=== PATIENT | male | born 2000 | race Caucasian/White ===

== ENCOUNTER 2019-01-29 22:04 | Emergency (ER) | payer SELFPAY ==
--- NOTE | 2019-01-29 22:07 | ED.ADGEN ---
Past History Past Medical History: Constipation, GERD, Other Past Surgical History: Tonsillectomy Smoking: Non-smoker Alcohol Use: None Drug Use: None Adult General Chief Complaint Chief Complaint ".. I had some nausea and vomiting and abdomen pain earlier... and was seen at [facility].. they said I was constipated.. I went home and drank some of that Mag . Citrate.. and got diarrhea.... but things got better and I went back to work.. but .. now I am having abdomen pain again..." HPI HPI Patient is a 18 year old male who presents with above hx and complaints generalized abdomen pain. Patient denies any intake of bad food. No recent travel or specific and no contacts. No history of trauma. Currently patient has no diarrhea but has persistent nausea and vomiting and now dry heaves. Patient has some rebound to right upper quadrant . No psoas sign. No history of exposures to ill animals. Mother is at bedside and she has consumed the same food that her son has eaten no ill effects. Patient normally follows with Dr. Medina. Patient states he has had previous problems with constipation. No family history of colitis or early onset gallbladder disease. Patient did have a onset of high fat meal prior the onset of current symptoms. Review of Systems Review of Systems Constitutional: Denies fever or chills [] Eyes: Denies change in visual acuity, redness, or eye pain [] HENT: Denies nasal congestion or sore throat [] Respiratory: Denies cough or shortness of breath [] Cardiovascular: No additional information not addressed in HPI [] GI: Complaints of generalized abdominal pain, nausea, vomiting,. Denies bloody stools or diarrhea [] : Denies dysuria or hematuria [] Musculoskeletal: Denies back pain or joint pain [] Integument: Denies rash or skin lesions [] Neurologic: Denies headache, focal weakness or sensory changes [] Endocrine: Denies polyuria or polydipsia [] All other systems were reviewed and found to be within normal limits, except as documented in this note. Family History Family History Noncontributory Current Medications Current Medications Current Medications Medications (Trade) Dose Ordered Sig/Pranav Start Time Stop Time Status Last Admin Dose Admin Ceftriaxone Sodium 1 gm/ Sodium Chloride 50 ml @ 100 mls/hr 1X ONCE 01/30/19 00:30 01/30/19 00:59 DC 01/30/19 00:08 100 MLS/HR Ceftriaxone Sodium (Rocephin) 1 gm STK-MED ONCE 01/29/19 23:59 01/29/19 23:59 DC Info (Do NOT chart on this entry -- for MONITORING) 1 each PRN DAILY PRN 01/30/19 00:15 01/30/19 02:42 DC Iohexol (Omnipaque 240 Mg/ml) 30 ml 1X ONCE 01/30/19 00:30 01/30/19 00:31 DC 01/30/19 01:28 30 ML Iohexol (Omnipaque 300 Mg/ml) 75 ml 1X ONCE 01/30/19 00:30 01/30/19 00:31 DC 01/30/19 01:29 75 ML Magnesium Hydroxide (Milk Of Magnesia) 2,400 mg 1X ONCE 01/30/19 00:30 01/30/19 00:31 DC 01/30/19 00:08 2,400 MG Metronidazole 100 ml @ 100 mls/hr 1X ONCE 01/30/19 00:30 01/30/19 01:29 DC 01/30/19 00:09 100 MLS/HR Ondansetron HCl (Zofran) 8 mg 1X ONCE 01/30/19 00:30 01/30/19 00:31 DC 01/30/19 00:29 8 MG Prochlorperazine Edisylate (Compazine) 10 mg STK-MED ONCE 01/30/19 01:05 01/30/19 01:06 DC Sodium Chloride 50 ml @ As Directed STK-MED ONCE 01/29/19 23:59 01/29/19 23:59 DC Allergies Allergies Allergies Coded Allergies Type Severity Reaction Last Updated Verified No Known Drug Allergies 09/25/13 No Physical Exam Physical Exam Constitutional: in acute distress, non-toxic appearance. [] HENT: Normocephalic, atraumatic, bilateral external ears normal, oropharynx dry, no oral exudates, nose normal. [] Eyes: PERRLA, EOMI, conjunctiva normal, no discharge. [] Neck: Normal range of motion, no tenderness, supple, no stridor. [] Cardiovascular:Heart rate regular rhythm, no murmur [] Lungs & Thorax: Bilateral breath sounds clear to auscultation [] Abdomen: Bowel sounds hyperactive,, soft, generalized tenderness, no masses, no pulsatile masses. [] Mild rebound to right upper quadrant. Patient declines rectal at this time. Skin: Warm, dry, no erythema, no rash. [] Back: No tenderness, no CVA tenderness. [] Extremities: No tenderness, no cyanosis, no clubbing, ROM intact, no edema. []No psoas sign. Does appear to have appearance of malnutrition. Neurologic: Alert and oriented X 3, normal motor function, normal sensory function, no focal deficits noted. [] Psychologic: Affect anxious, judgement normal, mood normal. [] Current Patient Data Vital Signs Vital Signs Date Time Temp Pulse Resp B/P (MAP) Pulse Ox O2 Delivery O2 Flow Rate FiO2 01/30/19 02:13 91 18 105/56 (72) 98 Room Air 01/29/19 22:20 97.9 Lab Results Laboratory Tests Test 01/29/19 22:30 01/29/19 23:20 01/30/19 00:55 White Blood Count 17.4 x10^3/uL (4.0-11.0) H Red Blood Count 5.91 x10^6/uL (4.30-5.70) H Hemoglobin 17.5 g/dL (13.0-17.5) Hematocrit 52.2 % (39.0-53.0) Mean Corpuscular Volume 88 fL (79-100) Mean Corpuscular Hemoglobin 30 pg (25-35) Mean Corpuscular Hemoglobin Concent 34 g/dL (31-37) Red Cell Distribution Width 13.1 % (11.5-14.5) Platelet Count 286 x10^3/uL (140-400) Neutrophils (%) (Auto) 93 % (31-73) H Lymphocytes (%) (Auto) 2 % (24-48) L Monocytes (%) (Auto) 5 % (0-9) Eosinophils (%) (Auto) 0 % (0-3) Basophils (%) (Auto) 0 % (0-3) Neutrophils # (Auto) 16.1 x10^3uL (1.8-7.7) H Lymphocytes # (Auto) 0.4 x10^3/uL (1.0-4.8) L Monocytes # (Auto) 0.8 x10^3/uL (0.0-1.1) Eosinophils # (Auto) 0.0 x10^3/uL (0.0-0.7) Basophils # (Auto) 0.0 x10^3/uL (0.0-0.2) Segmented Neutrophils % 90 % (35-66) H Band Neutrophils % 3 % (0-9) Lymphocytes % 1 % (24-48) L Monocytes % 5 % (0-10) Eosinophils % 1 % (0-5) Platelet Estimate Adequate (ADEQUATE) Large Platelets Occ Anisocytosis Slight Sodium Level 139 mmol/L (136-145) Potassium Level 4.2 mmol/L (3.5-5.1) Chloride Level 100 mmol/L (98-107) Carbon Dioxide Level 27 mmol/L (21-32) Anion Gap 12 (6-14) Blood Urea Nitrogen 13 mg/dL (8-26) Creatinine 1.0 mg/dL (0.7-1.3) Estimated GFR (Cockcroft-Gault) 95.3 Glucose Level 144 mg/dL (70-99) H Calcium Level 9.4 mg/dL (8.5-10.1) Total Bilirubin 1.1 mg/dL (0.2-1.0) H Direct Bilirubin 0.3 mg/dL (0.0-0.2) H Aspartate Amino Transferase (AST) 29 U/L (15-37) Alanine Aminotransferase (ALT) 38 U/L (16-63) Alkaline Phosphatase 82 U/L (46-116) Total Protein 8.2 g/dL (6.4-8.2) Albumin 5.0 g/dL (3.4-5.0) Lipase 102 U/L (73-393) Influenza Type A (Rapid) Negative (NEGATIVE) Influenza Type B (Rapid) Negative (NEGATIVE) Urine Collection Type Unknown Urine Color Yellow Urine Clarity Clear Urine pH 7.5 Urine Specific [place] 1.020 Urine Protein Neg (NEG-TRACE) Urine Glucose (UA) Neg mg/dL (NEG) Urine Ketones (Stick) 15 mg/dL (NEG) Urine Blood Neg (NEG) Urine Nitrite Neg (NEG) Urine Bilirubin Neg (NEG) Urine Urobilinogen Dipstick 0.2 mg/dL (0.2 mg/dL) Urine Leukocyte Esterase Neg (NEG) Urine RBC 0 /HPF (0-2) Urine WBC Occ /HPF (0-4) Urine Squamous Epithelial Cells Occ /LPF Urine Bacteria Few /HPF (0-FEW) Urine Mucus Slight /LPF Urine Opiates Screen Neg (NEG) Urine Methadone Screen Neg (NEG) Urine Barbiturates Neg (NEG) Urine Phencyclidine Screen Neg (NEG) Urine Amphetamine/Methamphetamine Neg (NEG) Urine Benzodiazepines Screen Neg (NEG) Urine Cocaine Screen Neg (NEG) Urine Cannabinoids Screen Neg (NEG) Urine Ethyl Alcohol Neg (NEG) EKG EKG [] Radiology/Procedures Radiology/Procedures [[address] [address] IMAGING REPORT Signed PATIENT: GENARO BLANTON ACCOUNT: [id number] : 2000 LOCATION: ER AGE: 18 SEX: M EXAM STATUS: REG ER ORD. PHYSICIAN: YAMILKA DOSS MD REASON: Abdomen pain, nausea, vomiting, chills PROCEDURE: ACUTE ABDOMEN SERIES Acute Abdominal Series: Technique: PA view of the chest and supine and upright views of the abdomen were obtained. History: Pain. Comparison: None. Findings: The lungs and pleural margins are clear. There is air and stool scattered throughout the colon. There is a paucity of small bowel gas. There is no free air. Impression: Constipation. Electronically signed by: Chris Okeefe III, MD (01/29/2019 11:47 PM) [facility] DICTATED AND SIGNED BY: CHRIS OKEEFE III, MD DATE: 01/29/19 6706 CC: YAMILKA DOSS MD; ANDREW MEDINA MD ~ ]Signed PATIENT: GENARO BLANTON ACCOUNT: [id number] : 2000 LOCATION: ER AGE: 18 SEX: M EXAM STATUS: REG ER ORD. PHYSICIAN: YAMILKA DOSS MD REASON: Abdomen pain, nausea, vomiting, chills PROCEDURE: CT ABD PELV W/ORAL&IV CONTRAST CT SCAN OF THE ABDOMEN AND PELVIS WITH IV CONTRAST. History: Abdominal pain nausea vomiting and chills Comparison: January 18, 2014. Procedure: Contiguous axial images of the abdomen and pelvis were performed after the administration of 75 cc of Omni 300 IV contrast. Oral contrast: Yes Findings: Liver: Unremarkable Spleen: Unremarkable Pancreas: Unremarkable Adrenal Glands: Unremarkable Kidneys: Unremarkable There is no mass or lymphadenopathy. There is no free air. There is no free fluid. The urinary bladder appears normal. The appendix is normal. Impression: No acute findings. PQRS Compliance Statement: One or more of the following individualized dose reduction techniques were utilized for this examination: 1. Automated exposure control 2. Adjustment of the mA and/or kV according to patient size 3. Use of iterative reconstruction technique Electronically signed by: Chris Okeefe III, MD (01/30/2019 1:58 AM) [facility] DICTATED AND SIGNED BY: CHRIS OKEEFE III, MD DATE: 01/30/19 0158 CC: YAMILKA DOSS MD; ANDREW MEDINA MD ~ Course & Med Decision Making Course & Med Decision Making Pertinent Labs and Imaging studies reviewed. (See chart for details) Patient at time of discharge reported marked improvement of symptoms. Will continue Bactrim DS twice day for 7 days. Take Tylenol and ibuprofen for pain. Zofran 8 for active nausea and vomiting up to 4 times a day. Patient status on a clear fluid diet. No solid or milk products. Push fluids. Dr. Medina. Consider EGD and colonoscopy. May also be a candidate for evaluation of gallbladder disease. Patient to return if any concerns. [] Final Impression Final Impression 1. Abdomen Pain 2. Nausea and Vomiting. [] 3. Leukocytosis 17.4 with 90 Segs 4. Elevated Bobby T and D 1.1/0.3 5. Elevated Glucose 144 Dragon Disclaimer Dragon Disclaimer This electronic medical record was generated, in whole or in part, using a voice recognition dictation system. Dragon Disclaimer This chart was dictated in whole or in part using Voice Recognition software in a busy, high-work load, and often noisy Emergency Department environment. It may contain unintended and wholly unrecognized errors or omissions. YAMILKA DOSS MD Jan 29, 2019 22:07
[2019-01-29] MEDS ORDERED: ONDANSETRON PF 4 MG/2 ML VIAL. IVP ONE (22:30)
[2019-01-29 22:56] LABS: BASO % 0 % (0-3); EOS % 0 % (0-3); HEMATOCRIT 52.2 % (39.0-53.0); HEMOGLOBIN 17.5 g/dL (13.0-17.5); LYMPH # 0.4 x10^3/uL (1.0-4.8); LYMPH % 2 % (24-48); MEAN CORPUSCULAR HEMOGLOBIN 30 pg (25-35); MEAN CORPUSCULAR HGB CONC 34 g/dL (31-37); MEAN CORPUSCULAR VOLUME 88 fL (79-100); MONO # 0.8 x10^3/uL (0.0-1.1); MONO % 5 % (0-9); NEUT # 16.1 x10^3uL (1.8-7.7); NEUT % 93 % (31-73); PLATELET COUNT 286 x10^3/uL (140-400); RED BLOOD COUNT 5.91 x10^6/uL (4.30-5.70); RED CELL DISTRIBUTION WIDTH 13.1 % (11.5-14.5); WHITE BLOOD COUNT 17.4 x10^3/uL (4.0-11.0)
[2019-01-29 23:19] LABS: CALCIUM 9.4 mg/dL (8.5-10.1); DIRECT BILIRUBIN 0.3 mg/dL (0.0-0.2); GFR 95.3; POTASSIUM 4.2 mmol/L (3.5-5.1); TOTAL BILIRUBIN 1.1 mg/dL (0.2-1.0); TOTAL PROTEIN 8.2 g/dL (6.4-8.2)
--- NOTE | 2019-01-29 23:50 | RAD ---
Acute Abdominal Series: Technique: PA view of the chest and supine and upright views of the abdomen were obtained. History: Pain. Comparison: None. Findings: The lungs and pleural margins are clear. There is air and stool scattered throughout the colon. There is a paucity of small bowel gas. There is no free air. Impression: Constipation. Electronically signed by: Kranthi Park III, MD (01/29/2019 11:47 PM) [facility]
[2019-01-29] MEDS ORDERED: IV NORMAL SALINE 50ML 50 ML ONE (23:59)
[2019-01-29] MEDS ORDERED: cefTRIAXone SODIUM 1 GM VIAL ONE (23:59)
[2019-01-30 00:02] LABS: INFLUENZA A PATIENT NEGATIVE (NEGATIVE); INFLUENZA B PATIENT NEGATIVE (NEGATIVE)
[2019-01-30] MEDS ORDERED: CONTRAST GIVEN MC PRN (00:15)
[2019-01-30 00:24] LABS: % BANDS 3 % (0-9); % EOS 1 % (0-5); % LYMPHS 1 % (24-48); % MONOS 5 % (0-10); % SEGS 90 % (35-66)
[2019-01-30 00:26] LABS: ANISOCYTOSIS SLIGHT; PLT ESTIMATE ADEQUATE (ADEQUATE)
[2019-01-30] MEDS ORDERED: IOHEXOL 300 MG/ML 75 ML VIAL. IV ONE (00:30)
[2019-01-30] MEDS ORDERED: MAGNESIUM HYDROXIDE 2,400 MG/30 ML ORAL.SUSP. PO ONE (00:30)
[2019-01-30] MEDS ORDERED: IOHEXOL 240 MG/ML 50ML VIAL. PO ONE (00:30)
[2019-01-30] MEDS ORDERED: ONDANSETRON PF 4 MG/2 ML VIAL. IVP ONE (00:30)
[2019-01-30] MEDS ORDERED: PROCHLORPERAZINE 10 MG/2 ML VIAL. ONE (01:05)
[2019-01-30 01:15] LABS: AMPHETAMINE/METHAMPHETAMINE NEG (NEG); BARBITURATES NEG (NEG); BENZODIAZEPINES NEG (NEG); CANNABINOIDS NEG (NEG); COCAINE NEG (NEG); METHADONE NEG (NEG); OPIATES NEG (NEG); PHENCYCLIDINE NEG (NEG)
[2019-01-30] MEDS ORDERED: PROCHLORPERAZINE 10 MG/2 ML VIAL. IV ONE (01:15)
[2019-01-30 01:24] LABS: BILIRUBIN,URINE NEG (NEG); CLARITY,URINE CLEAR; COLOR,URINE YELLOW; GLUCOSE,URINE NEG (NEG); NITRITE,URINE NEG (NEG); UROBILINOGEN,URINE 0.2 mg/dL (0.2 mg/dL)
[2019-01-30 01:25] LABS: BACTERIA,URINE FEW /HPF (0-FEW); RBC,URINE 0 /HPF (0-2); SQUAMOUS EPITHELIAL CELL,UR OCC /LPF; WBC,URINE OCC /HPF (0-4)
--- NOTE | 2019-01-30 02:01 | RAD ---
CT SCAN OF THE ABDOMEN AND PELVIS WITH IV CONTRAST. History: Abdominal pain nausea vomiting and chills Comparison: January 18, 2014. Procedure: Contiguous axial images of the abdomen and pelvis were performed after the administration of 75 cc of Omni 300 IV contrast. Oral contrast: Yes Findings: Liver: Unremarkable Spleen: Unremarkable Pancreas: Unremarkable Adrenal Glands: Unremarkable Kidneys: Unremarkable There is no mass or lymphadenopathy. There is no free air. There is no free fluid. The urinary bladder appears normal. The appendix is normal. Impression: No acute findings. PQRS Compliance Statement: One or more of the following individualized dose reduction techniques were utilized for this examination: 1. Automated exposure control 2. Adjustment of the mA and/or kV according to patient size 3. Use of iterative reconstruction technique Electronically signed by: Kranthi Park III, MD (01/30/2019 1:58 AM) [id number]
[2019-01-30 02:13] VITALS: BP 105/56
[2019-01-30] MEDS ORDERED: SULF1TAB24 PO (02:29)
[2019-01-30] MEDS ORDERED: ONDA8TAB9 PO (02:29)
== END 2019-01-30 02:40 | disposition home or self-care (01) ==
LOC: ER 22:04
DX: R10.84 Generalized abdominal pain (principal); R11.2 Nausea with vomiting, unspecified; D72.829 Elevated white blood cell count, unspecified; R73.9 Hyperglycemia, unspecified; E80.7 Disorder of bilirubin metabolism, unspecified; K21.9 Gastro-esophageal reflux disease without esophagitis
CPT/HCPCS: 36415; 74022; 74177; 80048; 80076; 80307; 81001; 83690; 85007; 85025; 87040; 87804; 96365; 96368; 96375; 96376; 99285; J0696; J0780; J2405; J3490; Q9966; Q9967